=== PATIENT | female | born 1995 | race Two or more races ===

== ENCOUNTER 2020-06-29 08:53 | Outpatient (CLI) | payer OTHER | END 2020-06-29 09:01 | disposition home or self-care (01) | LOC: SONOGRAMA 08:53 | PROVIDERS: ATTEND Pathology Anatomic Pathology & Clinical Pathology | DX: E04.2 Nontoxic multinodular goiter (principal) ==

== ENCOUNTER 2021-10-27 09:52 | Outpatient (CLI) | payer OTHER | END 2021-10-27 11:15 | disposition home or self-care (01) | LOC: PRENATAL 09:52 | PROVIDERS: ATTEND Obstetrics & Gynecology Maternal & Fetal Medicine | DX: Z03.79 Encounter for other suspected maternal and fetal conditions ruled out (principal) ==

== ENCOUNTER 2021-11-30 14:12 | Outpatient (CLI) | payer OTHER | END 2021-11-30 15:48 | disposition home or self-care (01) | LOC: PRENATAL 14:12 | PROVIDERS: ATTEND Obstetrics & Gynecology Maternal & Fetal Medicine | DX: O35.0XX0 Maternal care for (suspected) central nervous system malformation in fetus, not applicable or unspecified (principal); O35.3XX0 Maternal care for (suspected) damage to fetus from viral disease in mother, not applicable or unspecified; O98.919 Unspecified maternal infectious and parasitic disease complicating pregnancy, unspecified trimester; Z91.013 Allergy to seafood; Z3A.20 20 weeks gestation of pregnancy ==

== ENCOUNTER 2021-12-29 09:49 | Emergency (ER) | payer OTHER ==
[~2021-12-29] VITALS: Ht 160 cm; Wt 71.2 kg
[2021-12-29] MEDS ORDERED: PRENA1 CHEW TA1.4 MG (09:53)
[2021-12-29] MEDS ORDERED: DUI500 PO (10:55)
== END 2021-12-29 11:06 | disposition home or self-care (01) ==
LOC: ER 09:49
DX: O26.892 Other specified pregnancy related conditions, second trimester (principal); Z3A.24 24 weeks gestation of pregnancy; D17.1 Benign lipomatous neoplasm of skin and subcutaneous tissue of trunk

== ENCOUNTER 2022-03-15 05:16 | Outpatient (CLI) | payer OTHER ==
[~2022-03-15 05:16] MED LIST: DUI500 PO; PRENA1 CHEW TA1.4 MG
== END 2022-03-15 08:34 | disposition home or self-care (01) ==
LOC: NST 05:16
PROVIDERS: ATTEND Obstetrics & Gynecology
DX: Z34.83 Encounter for supervision of other normal pregnancy, third trimester (principal)

== ENCOUNTER 2022-04-06 23:14 | Inpatient (IN) | payer OTHER ==
[~2022-04-06] VITALS: Ht 160 cm; Wt 82.6 kg
[2022-04-06] MEDS ORDERED: IRON 100 PLUS1 EACH (23:25)
[2022-04-06] MEDS ORDERED: PRENATAL TABLE1 EAC1 (23:25)
[2022-04-06] MEDS ORDERED: VALTREX1000 MG (23:25)
== END 2022-04-09 13:09 | disposition home or self-care (01) | DRG 807 ==
LOC: OBS/DEL 23:14 → LDR 04-07 00:08 → OBS/DEL 04-07 01:27 → OB/GYN 04-07 01:28 → LDR 04-07 01:28 → OB/GYN 04-07 04:19
PROVIDERS: ADMIT Obstetrics & Gynecology; ATTEND Obstetrics & Gynecology
PROC: 10E0XZZ Delivery of Products of Conception, External Approach (ICD-10-PCS; principal; 2022-04-07)
PROC: 0KQM0ZZ Repair Perineum Muscle, Open Approach (ICD-10-PCS; 2022-04-07)
PROC: 4A1HXCZ Monitoring of Products of Conception, Cardiac Rate, External Approach (ICD-10-PCS; 2022-04-07)
DX: O70.1 Second degree perineal laceration during delivery (principal); Z37.0 Single live birth; Z3A.39 39 weeks gestation of pregnancy; Z20.822 Contact with and (suspected) exposure to COVID-19